=== PATIENT | male | born 1980 | race Native Hawaiian/Other Pacific Islander ===

== ENCOUNTER 2018-02-21 21:02 | Emergency (ER) | payer OTHER ==
[2018-02-21 22:12] VITALS: TEMP 98.6
--- NOTE | 2018-02-21 23:18 | ED PDOC ---
Arrival/HPI - General Chief Complaint: Medical Clearance Time Seen by Provider: 02/21/18 21:05 Historian: Patient - History of Present Illness Narrative History of Present Illness (Text): 02/21/18 23:09 37yo male with no past medical history who present to emergency department requesting a post exposure prophylaxis to HIV. states while having sex today, his condom teared open and he is worried about contacting HIV, hence he doesn't know the partner's status. States he won't be able to see his PMD till Monday, so he came to the emergency department . He denies any other complaint. Past Medical History - Provider Review Nursing Documentation Reviewed: Yes - Psychiatric Hx Substance Use: No - Surgical History Other/Comment: vein stripping - Anesthesia Hx Anesthesia: No Hx Anesthesia Reactions: No Hx Malignant Hyperthermia: No Family/Social History - Physician Review Nursing Documentation Reviewed: Yes Family/Social History: Unknown Family HX Smoking Status: Never Smoked Hx Alcohol Use: No Hx Substance Use: No Allergies/Home Meds Allergies/Adverse Reactions: Allergies No Known Allergies Allergy (Verified 02/21/18 21:16) Review of Systems - Physician Review All systems were reviewed & negative as marked: Yes - Review of Systems Constitutional: Normal, Other (PEP) Eyes: Normal ENT: Normal Respiratory: Normal Cardiovascular: Normal Gastrointestinal: Normal Genitourinary Male: Normal Musculoskeletal: Normal Skin: Normal Neurological: Normal Endocrine: Normal Hemo/Lymphatic: Normal Psychiatric: Normal Physical Exam Vital Signs Reviewed: Yes Vital Signs Temp Pulse Resp BP Pulse Ox 02/21/18 21:02 98.6 F 86 18 136/75 98 Temperature: Afebrile Blood Pressure: Normal Pulse: Regular Respiratory Rate: Normal Appearance: Positive for: Well-Appearing, Non-Toxic, Comfortable Pain Distress: None Mental Status: Positive for: Alert and Oriented X 3 - Systems Exam Head: Present: Atraumatic, Normocephalic Pupils: Present: PERRL Extroacular Muscles: Present: EOMI Conjunctiva: Present: Normal Mouth: Present: Moist Mucous Membranes Neck: Present: Normal Range of Motion Respiratory/Chest: Present: Clear to Auscultation, Good Air Exchange. No: Respiratory Distress, Accessory Muscle Use Cardiovascular: Present: Regular Rate and Rhythm, Normal S1, S2. No: Murmurs Abdomen: No: Tenderness, Distention, Peritoneal Signs Back: Present: Normal Inspection Upper Extremity: Present: Normal Inspection. No: Cyanosis, Edema Lower Extremity: Present: Normal Inspection. No: Edema Neurological: Present: GCS=15, CN II-XII Intact, Speech Normal Skin: Present: Warm, Dry, Normal Color. No: Rashes Psychiatric: Present: Alert, Oriented x 3, Normal Insight, Normal Concentration Medical Decision Making - Lab Interpretations Lab Results: Lab Results 02/21/18 21:45: HIV-1 Ab Rapid Screen Non reactive Disposition/Present on Arrival - Present on Arrival Any Indicators Present on Arrival: No History of DVT/PE: No History of Uncontrolled Diabetes: No Urinary Catheter: No History of Decub. Ulcer: No History Surgical Site Infection Following: None - Disposition Have Diagnosis and Disposition been Completed?: Yes Diagnosis: Possible exposure to STD Disposition: HOME/ ROUTINE Disposition Time: 01:10 Patient Plan: Discharge Condition: STABLE Discharge Instructions (ExitCare): Screening for Sexually Transmitted Infections Additional Instructions: Follow up with your Doctor Return to emergency department for any new complaint Prescriptions: Emtricitabine/Tenofovir Diso [Truvada 200 MG-300 MG] 1 tab PO DAILY #5 tab RX: Raltegravir Potassium [Isentress] 400 mg PO BID #10 tab Referrals: [facility] Pelayo, [Non-Staff] - Follow up with primary Forms: [email or web address] (Telugu)
[2018-02-21 23:36] LABS: BASO # 0.03 K/mm3 (0.0-2.0); BASO % 0.4 % (0.0-3.0); EOS # 0.3 (0.0-0.7); EOS % 3.5 % (1.5-5.0); GRAN # 4.51 (1.4-6.5); HEMOGLOBIN 15.6 g/dL (14.0-18.0); LYMPH # 2.3 (1.2-3.4); LYMPH % 29.9 % (22.0-35.0); MEAN CELL VOLUME 90.6 fl (80.0-105.0); MEAN CORPUSCULAR HEMOGLOBIN 30.4 pg (25.0-35.0); MEAN CORPUSCULAR HGB CONC 33.5 g/dl (31.0-37.0); MEAN PLATELET VOLUME 9.2 fl (7.0-11.0); MONO # 0.6 (0.1-0.6); MONO % 8.2 % (1.0-6.0); RBC 5.13 10^6/uL (3.5-6.1); RED CELL DISTRIBUTION WIDTH 12.5 % (11.5-14.5); WHITE BLOOD COUNT 7.8 10^3/uL (4.5-11.0)
[2018-02-21 23:48] LABS: ALB/GLOB RATIO 1.4 (1.1-1.8); ALBUMIN 4.3 g/dL (3.0-4.8); ALT/SGPT 39 U/L (7-56); AST/SGOT 39 U/L (17-59); BLOOD UREA NITROGEN 18 mg/dL (7-21); CALCIUM 9.1 mg/dL (8.4-10.5); GFR NON-AFRICAN AMERICAN > 60
[2018-02-22] MEDS: Emtricitabine-Tenofovir 200 mg-300 mg Tab PO ONE (00:35)
[2018-02-22 04:53] VITALS: BP 125/67; PULSE 80; RESP 19; O2SAT 100
[2018-02-22 14:12] LABS: HEPATITIS B SURFACE AG Negative (NEGATIVE)
[2018-02-22 14:18] LABS: HEPATITIS A IGM NEGATIVE (NEGATIVE); HEPATITIS B CORE AB NEGATIVE (NEGATIVE)
[2018-02-22 14:29] LABS: HEPATITIS C ANTIBODY NEGATIVE (NEGATIVE)
== END 2018-02-22 00:37 | disposition home or self-care (01) ==
LOC: ED 21:02
DX: Z20.2 Contact with and (suspected) exposure to infections with a predominantly sexual mode of transmission (principal)